=== PATIENT | male | born 1970 | race Caucasian/White ===

== ENCOUNTER 2017-04-29 18:00 | Emergency (ER) | payer OTHER ==
[~2017-04-29] VITALS: Ht 182.9 cm; Wt 125.0 kg
[~2017-04-29 18:00] MED LIST: /ATOR40TA; /AUGM875TA OR; /INSU7030 SC; /THIA10TA; ASPI81TA83 OR; BACT400T OR; CLIN150C OR; FLUC10TA OR; FOLI1TAB; GEMF600T OR; GLUC850T; INSULANT SC; JANUVIA; LISI2.5T OR; LOVAZA; METF500T4 OR; NOVOLOG100 MG/ML SC; NYSTATIN ORAL SS; No Historical Meds; POTA20TA2 OR; PRIN10TA; ZOCO40TA OR
[2017-04-29 20:21] VITALS: BP 158/94
[2017-04-29] MEDS ORDERED: CEPHALEXIN 500 MG CAP PO ONE (20:45)
[2017-04-29] MEDS ORDERED: KEFL500C17 PO (20:50)
[2017-04-29] MEDS ORDERED: ADACEL/BOOSTRIX VACCINE (DIPHTH/PERTUSS/ACELL/TETANUS)0.5ML SYR (90715) IM ONE (21:00)
== END 2017-04-29 21:26 | disposition home or self-care (01) ==
LOC: M ED 18:00
DX: L03.011 Cellulitis of right finger (principal); E11.9 Type 2 diabetes mellitus without complications; F17.200 Nicotine dependence, unspecified, uncomplicated; Z79.82 Long term (current) use of aspirin; Z79.4 Long term (current) use of insulin

== ENCOUNTER 2017-05-01 10:22 | Emergency (ER) | payer OTHER ==
[~2017-05-01] VITALS: Ht 182.9 cm; Wt 125.0 kg
[~2017-05-01 10:22] MED LIST changes: +KEFL500C17 PO
[2017-05-01 10:23] VITALS: BP 162/82
[2017-05-01] MEDS ORDERED: KEFL500C17 PO (10:37)
== END 2017-05-01 11:38 | disposition home or self-care (01) ==
LOC: M ED 10:22
DX: L02.511 Cutaneous abscess of right hand (principal); L03.011 Cellulitis of right finger; Z79.82 Long term (current) use of aspirin; Z79.4 Long term (current) use of insulin

== ENCOUNTER 2022-01-11 20:54 | Emergency (ER) | payer OTHER ==
[~2022-01-11] VITALS: Ht 182.9 cm; Wt 116.8 kg
[~2022-01-11 20:54] MED LIST changes: -/ATOR40TA; -/INSU7030 SC; +LIPI1TAB2; +NOVO1INJ4 SC
[2022-01-11 20:55] VITALS: BP 177/105
[2022-01-11] MEDS ORDERED: TRES100I SC (21:26)
[2022-01-11] MEDS ORDERED: VALS1TAB66 PO (21:26)
== END 2022-01-12 00:22 | disposition left against medical advice (07) ==
LOC: M ED 20:54
DX: Z53.21 Procedure and treatment not carried out due to patient leaving prior to being seen by health care provider (principal)

== ENCOUNTER 2025-06-10 19:17 | Inpatient (IN) | payer OTHER ==
[~2025-06-10] VITALS: Ht 182.9 cm; Wt 105.7 kg
[~2025-06-10 19:17] MED LIST changes: +TRES100I SC; +VALS1TAB66 PO
[2025-06-10] MEDS ORDERED: VALS1TAB67 PO (19:31)
[2025-06-10] MEDS ORDERED: TRES1INJ SC (19:31)
[2025-06-10] MEDS ORDERED: ICOS1CAP PO (19:31)
[2025-06-10] MEDS ORDERED: ROSU40TA81 (19:31)
[2025-06-10] MEDS: NS (Normal Saline) 0.9% 1,000 ML IV ONE (20:19)
[2025-06-10 20:27] LABS: BASO # 0.1 10^3/uL (0.0-0.2); BASO % 0.4 % (0.0-1.0); EOS # 0.1 10^3/uL (0.0-0.5); EOS % 0.5 % (0.0-3.0); LYMPH # 1.3 10^3/uL (1.5-5.0); LYMPH % 7.5 % (24.0-44.0); MONO # 1.2 10^3/uL (0.0-0.8); MONO % 7.2 % (2.0-8.0); NEUTROPHILS # 13.9 10^3/uL (1.5-8.5); NEUTROPHILS % 83.5 % (36.0-66.0); PLATELET COUNT, AUTOMATED 360 10^3/uL (150-450)
[2025-06-10 21:00] LABS: ALT/SGPT 84 U/L (7.0-40); AST/SGOT 64 U/L (<34); CALCIUM LEVEL 8.8 MG/DL (8.5-10.1); CARBON DIOXIDE LEVEL 25 MMOL/L (20-31); CHLORIDE LEVEL 93 MMOL/L (98-107); CREATININE FOR GFR 0.68 MG/DL (0.70-1.30); GLOMERULAR FILTRATION RATE > 90.0 (>56); POTASSIUM SERUM 4.2 MMOL/L (3.5-5.1); SODIUM LEVEL 130 MMOL/L (136-145)
[2025-06-10] MEDS ORDERED: ISOVUE-370 76% 100 ML VIAL As Ordered ONE (21:06)
[2025-06-10 21:17] LABS: ESTIMATED AVERAGE GLUCOSE 298.0 MG/DL (60-110)
[2025-06-10 21:46] LABS: C REACTIVE PROTEIN QUANTITATIV 19.01 MG/DL (<1.0)
[2025-06-10] MEDS: MEROPENEM 1 GM in IV 1 EA IV ONE (22:22)
[2025-06-10] MEDS ORDERED: B COCAP4 PO (22:36)
[2025-06-10] MEDS ORDERED: ECOT81TA5 PO (22:36)
[2025-06-10] MEDS ORDERED: HOME MED LIST COMPLETE! XX SCH (22:40)
[2025-06-10] MEDS ORDERED: CLINDAMYCIN 900 MG/50 ML PREMIX BAG ONE (23:05)
[2025-06-10] MEDS ORDERED: CLINDAMYCIN 900 MG/50 ML PREMIX BAG As Ordered ONE (23:05)
[2025-06-10] MEDS ORDERED: ROCURONIUM BROMIDE 50MG/5ML VIAL As Ordered ONE (23:24)
[2025-06-10] MEDS ORDERED: SUGAMMADEX SODIUM 200 MG/2 ML VIAL As Ordered ONE (23:24)
[2025-06-10] MEDS ORDERED: LIDOCAINE 2% 100 MG/5 ML SDV (FOR ANES.) As Ordered ONE (23:24)
[2025-06-10] MEDS ORDERED: MIDAZOLAM INJ 2 MG/2 ML VIAL As Ordered ONE (23:24)
[2025-06-10] MEDS ORDERED: ONDANSETRON 4MG/2ML VIAL As Ordered ONE (23:24)
[2025-06-10] MEDS: CLINDAMYCIN 900 MG in IV 1 EA IV SCH (23:25)
[2025-06-10] MEDS ORDERED: ACETAMINOPHEN 1000MG/100ML IV BAG As Ordered ONE (23:36)
[2025-06-10] MEDS ORDERED: dexmedeTOMIDine (4 MCG/ML) 200 MCG/50 ML BTL As Ordered ONE (23:39)
[2025-06-11] VITALS (14 sets, daily range): BP systolic 93–124; BP diastolic 50–67; TEMP 97–98.1; O2SAT 91–97
[2025-06-11] MEDS ORDERED: DEXTROSE 50% 50 ML SYRINGE IV PRN (00:10)
[2025-06-11] MEDS ORDERED: MAALOX 30 ML SUSP *UDC PO PRN (00:10)
[2025-06-11] MEDS ORDERED: MORPHINE 4 MG/ML 1 ML VIAL IV PRN ×2 (00:10→08:00)
[2025-06-11] MEDS ORDERED: MOM 30 ML SUSPENSION UDC PO PRN (00:10)
[2025-06-11] MEDS ORDERED: GLUCOSE 4 GM CHEW PO PRN (00:10)
[2025-06-11] MEDS ORDERED: GLUCAGON INJ 1 MG VIAL SC PRN (00:10)
[2025-06-11] MEDS ORDERED: LR 1,000 ML IV SCH (00:15)
[2025-06-11] MEDS ORDERED: HYDROMORPHONE HCL 0.5 MG/0.5 ML SYRINGE IV PRN (00:15)
[2025-06-11] MEDS ORDERED: PERCOCET 5MG/325MG TAB PO PRN (00:15)
[2025-06-11] MEDS ORDERED: ONDANSETRON 4MG/2ML VIAL IV PRN ×2 (00:15→00:30)
[2025-06-11] MEDS ORDERED: INSULIN LISPRO (NovoLOG) PER UNIT SC PRN (00:25)
[2025-06-11] MEDS: LR 1,000 ML IV SCH (01:13)
[2025-06-11] MEDS: MEROPENEM 1 GM in IV 1 EA IV SCH (05:43)
[2025-06-11 05:51] LABS: PLATELET COUNT, AUTOMATED 273 10^3/uL (150-450)
[2025-06-11 06:19] LABS: ALT/SGPT 59 U/L (7.0-40); AST/SGOT 41 U/L (<34); CALCIUM LEVEL 8.2 MG/DL (8.5-10.1); CARBON DIOXIDE LEVEL 29 MMOL/L (20-31); CHLORIDE LEVEL 98 MMOL/L (98-107); CREATININE FOR GFR 0.61 MG/DL (0.70-1.30); GLOMERULAR FILTRATION RATE > 90.0 (>56); POTASSIUM SERUM 4.1 MMOL/L (3.5-5.1); SODIUM LEVEL 135 MMOL/L (136-145)
[2025-06-11] MEDS: PANTOPRAZOLE 40MG VIAL IV SCH (08:21)
[2025-06-11] MEDS: DOCUSATE SODIUM 100 MG CAPSULE PO SCH (08:21)
[2025-06-11] MEDS: INSULIN LISPRO (NovoLOG) PER UNIT SC SCH ×3 (08:21→21:07)
[2025-06-11] MEDS ORDERED: ASPIRIN 81 MG ENTERIC TABLET PO SCH (09:00)
[2025-06-11] MEDS: TRIAMCINOLONE ACET 0.1% OINTMENT 15GM TOP SCH (21:06)
[2025-06-11] MEDS: LanTUS (INSULIN GLARGINE INJ) 1 UNITS/0.01 ML SC SCH (21:06)
[2025-06-11] MEDS: PIPERACILLIN/TAZOBACTAM SOD 4.5 GM in DEXTROSE 5% (D5W) ADV/MINI-BAG 50 ML IV SCH (21:06)
[2025-06-11] MEDS: CLOTRIMAZOLE 1% TOPICAL CREAM 30 GM TOP SCH (21:07)
[2025-06-12 00:29] VITALS: BP 129/70; TEMP 98.2; O2SAT 97
[2025-06-12 03:43] VITALS: BP 137/74; TEMP 98; O2SAT 97
[2025-06-12 05:37] LABS: BASO # 0.1 10^3/uL (0.0-0.2); BASO % 0.7 % (0.0-1.0); EOS # 0.3 10^3/uL (0.0-0.5); EOS % 3.2 % (0.0-3.0); LYMPH # 1.5 10^3/uL (1.5-5.0); LYMPH % 14.7 % (24.0-44.0); MONO # 0.7 10^3/uL (0.0-0.8); MONO % 6.7 % (2.0-8.0); NEUTROPHILS # 7.3 10^3/uL (1.5-8.5); NEUTROPHILS % 73.8 % (36.0-66.0); PLATELET COUNT, AUTOMATED 286 10^3/uL (150-450)
[2025-06-12 06:02] LABS: CALCIUM LEVEL 7.5 MG/DL (8.5-10.1); CARBON DIOXIDE LEVEL 30 MMOL/L (20-31); CHLORIDE LEVEL 101 MMOL/L (98-107); CREATININE FOR GFR 0.55 MG/DL (0.70-1.30); GLOMERULAR FILTRATION RATE > 90.0 (>56); MAGNESIUM LEVEL 1.7 MG/DL (1.8-2.4); POTASSIUM SERUM 3.8 MMOL/L (3.5-5.1); SODIUM LEVEL 136 MMOL/L (136-145)
[2025-06-12 08:00] VITALS: BP 134/76; TEMP 97.7; O2SAT 98
[2025-06-12] MEDS: MAG SULF 1GM/100ML (MAG RUN) 1 GM in IV 1 EA IV SCH (08:27)
[2025-06-12] MEDS: ACETAMINOPHEN 325 MG TAB PO PRN (08:47)
[2025-06-12 12:00] VITALS: BP 122/68; TEMP 97.8; O2SAT 95
[2025-06-12] MEDS: ENOXAPARIN 40 MG/0.4 ML SYRINGE (J1650 PER 10MG) SC SCH (12:30)
[2025-06-12 16:00] VITALS: BP 116/55; TEMP 98.6; O2SAT 98
[2025-06-12 19:30] VITALS: BP 118/73; TEMP 98.2; O2SAT 96
[2025-06-12] MEDS: LanTUS (INSULIN GLARGINE INJ) 1 UNITS/0.01 ML SC SCH (21:15)
[2025-06-13] VITALS (8 sets, daily range): BP systolic 130–160; BP diastolic 62–80; TEMP 97.5–97.8; O2SAT 80–98
[2025-06-13 05:56] LABS: BASO # 0.1 10^3/uL (0.0-0.2); BASO % 1.0 % (0.0-1.0); EOS # 0.3 10^3/uL (0.0-0.5); EOS % 4.1 % (0.0-3.0); LYMPH # 1.5 10^3/uL (1.5-5.0); LYMPH % 20.9 % (24.0-44.0); MONO # 0.5 10^3/uL (0.0-0.8); MONO % 7.4 % (2.0-8.0); NEUTROPHILS # 4.8 10^3/uL (1.5-8.5); NEUTROPHILS % 65.1 % (36.0-66.0); PLATELET COUNT, AUTOMATED 299 10^3/uL (150-450)
[2025-06-13 06:18] LABS: CALCIUM LEVEL 7.9 MG/DL (8.5-10.1); CARBON DIOXIDE LEVEL 29 MMOL/L (20-31); CHLORIDE LEVEL 103 MMOL/L (98-107); CREATININE FOR GFR 0.61 MG/DL (0.70-1.30); GLOMERULAR FILTRATION RATE > 90.0 (>56); MAGNESIUM LEVEL 1.9 MG/DL (1.8-2.4); POTASSIUM SERUM 4.0 MMOL/L (3.5-5.1); SODIUM LEVEL 139 MMOL/L (136-145)
[2025-06-13 14:26] LABS: C REACTIVE PROTEIN QUANTITATIV 5.87 MG/DL (<1.0)
[2025-06-13] MEDS: INSULIN LISPRO (NovoLOG) PER UNIT SC SCH (14:29)
[2025-06-13] MEDS: LanTUS (INSULIN GLARGINE INJ) 1 UNITS/0.01 ML SC SCH (20:37)
[2025-06-13] MEDS: ceFAZolin SODIUM 2 GM in DEXTROSE 5% (D5W) ADV/MINI-BAG 50 ML IV SCH (20:37)
[2025-06-14 00:19] VITALS: BP 140/65; TEMP 97.3; O2SAT 100
[2025-06-14 03:53] VITALS: BP 156/79; TEMP 97.1; O2SAT 98
[2025-06-14 06:26] LABS: CALCIUM LEVEL 7.6 MG/DL (8.5-10.1); CARBON DIOXIDE LEVEL 30 MMOL/L (20-31); CHLORIDE LEVEL 102 MMOL/L (98-107); CREATININE FOR GFR 0.50 MG/DL (0.70-1.30); GLOMERULAR FILTRATION RATE > 90.0 (>56); MAGNESIUM LEVEL 1.9 MG/DL (1.8-2.4); POTASSIUM SERUM 4.0 MMOL/L (3.5-5.1); SODIUM LEVEL 138 MMOL/L (136-145)
[2025-06-14 07:45] VITALS: BP 146/79; TEMP 97.4; O2SAT 92
[2025-06-14] MEDS: VALSARTAN 80MG TAB PO SCH (09:50)
[2025-06-14 11:52] VITALS: BP 137/79; TEMP 97.2; O2SAT 97
[2025-06-14 15:44] VITALS: BP 151/78; TEMP 97.9; O2SAT 97
[2025-06-14 19:49] VITALS: BP 162/80; TEMP 97.9; O2SAT 96
[2025-06-15] VITALS (8 sets, daily range): BP systolic 137–166; BP diastolic 67–82; TEMP 96.7–98.4; O2SAT 95–98
[2025-06-15 06:31] LABS: CALCIUM LEVEL 7.9 MG/DL (8.5-10.1); CARBON DIOXIDE LEVEL 30 MMOL/L (20-31); CHLORIDE LEVEL 101 MMOL/L (98-107); CREATININE FOR GFR 0.53 MG/DL (0.70-1.30); GLOMERULAR FILTRATION RATE > 90.0 (>56); MAGNESIUM LEVEL 1.8 MG/DL (1.8-2.4); POTASSIUM SERUM 4.2 MMOL/L (3.5-5.1); SODIUM LEVEL 138 MMOL/L (136-145)
[2025-06-15] MEDS: INSULIN LISPRO (NovoLOG) PER UNIT SC SCH (17:51)
[2025-06-16 04:11] VITALS: BP 161/81; TEMP 97.8; O2SAT 97
[2025-06-16 07:16] LABS: CALCIUM LEVEL 8.0 MG/DL (8.5-10.1); CARBON DIOXIDE LEVEL 29 MMOL/L (20-31); CHLORIDE LEVEL 100 MMOL/L (98-107); CREATININE FOR GFR 0.51 MG/DL (0.70-1.30); GLOMERULAR FILTRATION RATE > 90.0 (>56); MAGNESIUM LEVEL 1.8 MG/DL (1.8-2.4); POTASSIUM SERUM 4.4 MMOL/L (3.5-5.1); SODIUM LEVEL 136 MMOL/L (136-145)
[2025-06-16 07:17] VITALS: BP 139/82; TEMP 97.5; O2SAT 95
[2025-06-16 11:53] VITALS: BP 159/90; TEMP 97.9; O2SAT 96
[2025-06-16 12:00] VITALS: BP 144/80; TEMP 98.2; O2SAT 97
[2025-06-16] MEDS: INSULIN LISPRO (NovoLOG) PER UNIT SC SCH (12:31)
[2025-06-16 19:57] VITALS: BP 148/77; TEMP 97.7; O2SAT 98
[2025-06-17 00:42] VITALS: BP 153/72; TEMP 97.7; O2SAT 92
[2025-06-17 05:14] VITALS: BP 172/87; TEMP 97.1; O2SAT 95
[2025-06-17 05:53] LABS: CALCIUM LEVEL 8.6 MG/DL (8.5-10.1); CARBON DIOXIDE LEVEL 30 MMOL/L (20-31); CHLORIDE LEVEL 102 MMOL/L (98-107); CREATININE FOR GFR 0.56 MG/DL (0.70-1.30); GLOMERULAR FILTRATION RATE > 90.0 (>56); MAGNESIUM LEVEL 1.8 MG/DL (1.8-2.4); POTASSIUM SERUM 4.7 MMOL/L (3.5-5.1); SODIUM LEVEL 140 MMOL/L (136-145)
[2025-06-17 07:36] VITALS: BP 167/87; TEMP 97.8; O2SAT 95
[2025-06-17] MEDS: INSULIN LISPRO (NovoLOG) PER UNIT SC SCH ×2 (09:33→17:39)
[2025-06-17 12:03] VITALS: BP 138/79; TEMP 97.3; O2SAT 96
[2025-06-17 16:44] VITALS: BP 154/86; TEMP 97.8; O2SAT 95
[2025-06-17 19:45] VITALS: BP 150/83; TEMP 97.7; O2SAT 95
[2025-06-17] MEDS: LanTUS (INSULIN GLARGINE INJ) 1 UNITS/0.01 ML SC SCH (20:19)
[2025-06-18 03:37] VITALS: BP 141/70; TEMP 97.9; O2SAT 97
[2025-06-18 05:59] LABS: CALCIUM LEVEL 8.2 MG/DL (8.5-10.1); CARBON DIOXIDE LEVEL 27 MMOL/L (20-31); CHLORIDE LEVEL 103 MMOL/L (98-107); CREATININE FOR GFR 0.51 MG/DL (0.70-1.30); GLOMERULAR FILTRATION RATE > 90.0 (>56); MAGNESIUM LEVEL 1.8 MG/DL (1.8-2.4); POTASSIUM SERUM 4.4 MMOL/L (3.5-5.1); SODIUM LEVEL 139 MMOL/L (136-145)
[2025-06-18 07:47] VITALS: BP 140/77; TEMP 97.6; O2SAT 97
[2025-06-18 08:08] LABS: PLATELET COUNT, AUTOMATED 307 10^3/uL (150-450)
[2025-06-18 16:00] VITALS: BP 160/82; TEMP 97.9; O2SAT 93
[2025-06-18 19:46] VITALS: BP 161/85; TEMP 97.8; O2SAT 96
[2025-06-19 03:48] VITALS: BP 159/70; TEMP 99; O2SAT 96
[2025-06-19 04:59] LABS: PLATELET COUNT, AUTOMATED 318 10^3/uL (150-450)
[2025-06-19 05:21] LABS: CALCIUM LEVEL 8.8 MG/DL (8.5-10.1); CARBON DIOXIDE LEVEL 28 MMOL/L (20-31); CHLORIDE LEVEL 104 MMOL/L (98-107); CREATININE FOR GFR 0.55 MG/DL (0.70-1.30); GLOMERULAR FILTRATION RATE > 90.0 (>56); POTASSIUM SERUM 4.3 MMOL/L (3.5-5.1); SODIUM LEVEL 140 MMOL/L (136-145)
[2025-06-19 08:40] VITALS: BP 135/74; TEMP 97.6; O2SAT 98
[2025-06-19 12:00] VITALS: BP 137/74; TEMP 98.3; O2SAT 96
[2025-06-19 20:35] VITALS: BP 134/67; TEMP 97.7; O2SAT 96
[2025-06-19] MEDS: INSULIN LISPRO (NovoLOG) PER UNIT SC SCH (21:13)
[2025-06-19] MEDS: LanTUS (INSULIN GLARGINE INJ) 1 UNITS/0.01 ML SC SCH (21:14)
[2025-06-20 04:16] VITALS: BP 139/83; TEMP 98.9; O2SAT 97
[2025-06-20 06:31] LABS: PLATELET COUNT, AUTOMATED 286 10^3/uL (150-450)
[2025-06-20 06:57] LABS: CALCIUM LEVEL 8.6 MG/DL (8.5-10.1); CARBON DIOXIDE LEVEL 26 MMOL/L (20-31); CHLORIDE LEVEL 104 MMOL/L (98-107); CREATININE FOR GFR 0.52 MG/DL (0.70-1.30); GLOMERULAR FILTRATION RATE > 90.0 (>56); POTASSIUM SERUM 4.4 MMOL/L (3.5-5.1); SODIUM LEVEL 139 MMOL/L (136-145)
[2025-06-20] MEDS: INSULIN LISPRO (NovoLOG) PER UNIT SC SCH (08:00)
[2025-06-20 11:57] VITALS: BP 139/65; TEMP 98.2; O2SAT 97
[2025-06-20 20:41] VITALS: BP 137/70; TEMP 97.8; O2SAT 91
[2025-06-21] VITALS: BP 157/86; TEMP 98.6; O2SAT 96
[2025-06-21 04:00] VITALS: BP 161/83; TEMP 99; O2SAT 99
[2025-06-21 06:29] LABS: PLATELET COUNT, AUTOMATED 276 10^3/uL (150-450)
[2025-06-21 06:53] LABS: CALCIUM LEVEL 8.2 MG/DL (8.5-10.1); CARBON DIOXIDE LEVEL 28 MMOL/L (20-31); CHLORIDE LEVEL 103 MMOL/L (98-107); CREATININE FOR GFR 0.51 MG/DL (0.70-1.30); GLOMERULAR FILTRATION RATE > 90.0 (>56); POTASSIUM SERUM 4.4 MMOL/L (3.5-5.1); SODIUM LEVEL 139 MMOL/L (136-145)
[2025-06-21 08:33] VITALS: BP 143/75; TEMP 98.7; O2SAT 97
[2025-06-21 11:46] VITALS: BP 124/66; TEMP 98.5; O2SAT 95
[2025-06-21] MEDS: PANTOPRAZOLE 40MG TAB PO SCH (13:32)
[2025-06-21] MEDS: INSULIN LISPRO (NovoLOG) PER UNIT SC SCH (17:50)
[2025-06-21 20:00] VITALS: BP 150/80; TEMP 98.6; O2SAT 94
[2025-06-21] MEDS: LanTUS (INSULIN GLARGINE INJ) 1 UNITS/0.01 ML SC SCH (20:18)
[2025-06-22 04:16] VITALS: BP 149/85; TEMP 99.1; O2SAT 97
[2025-06-22 06:03] LABS: PLATELET COUNT, AUTOMATED 273 10^3/uL (150-450)
[2025-06-22 06:38] LABS: CALCIUM LEVEL 8.3 MG/DL (8.5-10.1); CARBON DIOXIDE LEVEL 28 MMOL/L (20-31); CHLORIDE LEVEL 104 MMOL/L (98-107); CREATININE FOR GFR 0.59 MG/DL (0.70-1.30); GLOMERULAR FILTRATION RATE > 90.0 (>56); POTASSIUM SERUM 4.4 MMOL/L (3.5-5.1); SODIUM LEVEL 140 MMOL/L (136-145)
[2025-06-22 11:48] VITALS: BP 133/80; TEMP 98; O2SAT 98
[2025-06-22 19:44] VITALS: BP 122/76; TEMP 97.4; O2SAT 95
[2025-06-23 03:20] VITALS: BP 125/64; TEMP 98.3; O2SAT 94
[2025-06-23 06:06] LABS: PLATELET COUNT, AUTOMATED 263 10^3/uL (150-450)
[2025-06-23 06:30] LABS: CALCIUM LEVEL 8.8 MG/DL (8.5-10.1); CARBON DIOXIDE LEVEL 27 MMOL/L (20-31); CHLORIDE LEVEL 102 MMOL/L (98-107); CREATININE FOR GFR 0.53 MG/DL (0.70-1.30); GLOMERULAR FILTRATION RATE > 90.0 (>56); POTASSIUM SERUM 4.3 MMOL/L (3.5-5.1); SODIUM LEVEL 139 MMOL/L (136-145)
[2025-06-23 08:55] VITALS: BP 143/92; TEMP 98.2; O2SAT 96
[2025-06-23 12:14] VITALS: BP 138/70; TEMP 98.5; O2SAT 96
[2025-06-23 21:06] VITALS: BP 145/78; TEMP 97.4; O2SAT 97
[2025-06-24 04:58] VITALS: BP 138/79; TEMP 97.2; O2SAT 97
[2025-06-24 07:04] LABS: PLATELET COUNT, AUTOMATED 262 10^3/uL (150-450)
[2025-06-24 07:29] LABS: CALCIUM LEVEL 8.5 MG/DL (8.5-10.1); CARBON DIOXIDE LEVEL 27 MMOL/L (20-31); CHLORIDE LEVEL 104 MMOL/L (98-107); CREATININE FOR GFR 0.58 MG/DL (0.70-1.30); GLOMERULAR FILTRATION RATE > 90.0 (>56); POTASSIUM SERUM 4.4 MMOL/L (3.5-5.1); SODIUM LEVEL 140 MMOL/L (136-145)
[2025-06-24 08:49] VITALS: BP 127/75
[2025-06-24 12:00] VITALS: BP 139/84; TEMP 98.4; O2SAT 94
[2025-06-24 20:00] VITALS: BP 125/74; TEMP 98.7; O2SAT 96
[2025-06-25 04:50] VITALS: BP 138/75; TEMP 98.9; O2SAT 96
[2025-06-25 07:04] LABS: PLATELET COUNT, AUTOMATED 272 10^3/uL (150-450)
[2025-06-25 07:20] LABS: CALCIUM LEVEL 8.8 MG/DL (8.5-10.1); CARBON DIOXIDE LEVEL 28 MMOL/L (20-31); CHLORIDE LEVEL 101 MMOL/L (98-107); CREATININE FOR GFR 0.51 MG/DL (0.70-1.30); GLOMERULAR FILTRATION RATE > 90.0 (>56); POTASSIUM SERUM 4.5 MMOL/L (3.5-5.1); SODIUM LEVEL 137 MMOL/L (136-145)
[2025-06-25 12:24] VITALS: BP 109/69; TEMP 98.7; O2SAT 95
[2025-06-25 16:17] LABS: C REACTIVE PROTEIN QUANTITATIV < 0.50 MG/DL (<1.0)
[2025-06-25 21:53] VITALS: BP 124/78; TEMP 98.2; O2SAT 99
[2025-06-26 04:27] VITALS: BP 154/86; TEMP 98.9; O2SAT 97
[2025-06-26 06:28] LABS: BASO # 0.1 10^3/uL (0.0-0.2); BASO % 1.6 % (0.0-1.0); EOS # 0.5 10^3/uL (0.0-0.5); EOS % 7.3 % (0.0-3.0); LYMPH # 2.2 10^3/uL (1.5-5.0); LYMPH % 35.8 % (24.0-44.0); MONO # 0.5 10^3/uL (0.0-0.8); MONO % 8.0 % (2.0-8.0); NEUTROPHILS # 2.9 10^3/uL (1.5-8.5); NEUTROPHILS % 47.0 % (36.0-66.0); PLATELET COUNT, AUTOMATED 262 10^3/uL (150-450)
[2025-06-26 06:56] LABS: ALT/SGPT 14 U/L (7.0-40); AST/SGOT 19 U/L (<34); CALCIUM LEVEL 8.7 MG/DL (8.5-10.1); CARBON DIOXIDE LEVEL 28 MMOL/L (20-31); CHLORIDE LEVEL 103 MMOL/L (98-107); CREATININE FOR GFR 0.61 MG/DL (0.70-1.30); GLOMERULAR FILTRATION RATE > 90.0 (>56); MAGNESIUM LEVEL 1.8 MG/DL (1.8-2.4); POTASSIUM SERUM 4.6 MMOL/L (3.5-5.1); SODIUM LEVEL 140 MMOL/L (136-145)
[2025-06-26 12:00] VITALS: BP 129/83; TEMP 98.4; O2SAT 96
[2025-06-26 20:50] VITALS: BP 134/79; TEMP 98.9; O2SAT 96
[2025-06-27 05:43] VITALS: BP 139/83; TEMP 98.9; O2SAT 97
[2025-06-27 09:46] VITALS: BP 134/81
[2025-06-27 12:00] VITALS: BP 136/74; TEMP 98.6; O2SAT 100
[2025-06-27] MEDS ORDERED: TRES1INJ SC (16:28)
[2025-06-27] MEDS ORDERED: HUMA50IN4 SC (16:28)
[2025-06-27] MEDS ORDERED: GLOB31MI SC (16:31)
== END 2025-06-27 17:57 | disposition home health service (06) | DRG 351 ==
LOC: M ED 19:17 → M ED INP 06-11 00:08 → M PCU 06-11 00:59 → M MSPAV 06-19 08:38
PROVIDERS: ADMIT Student in an Organized Health Care Education/Training Program; ATTEND Student in an Organized Health Care Education/Training Program
PROC: 0JBB0ZZ Excision of Perineum Subcutaneous Tissue and Fascia, Open Approach (ICD-10-PCS; principal; 2025-06-11)
DX: M79.89 Other specified soft tissue disorders (principal); M72.6 Necrotizing fasciitis; I96 Gangrene, not elsewhere classified; R78.81 Bacteremia; I42.0 Dilated cardiomyopathy; E11.65 Type 2 diabetes mellitus with hyperglycemia; N28.1 Cyst of kidney, acquired; L03.315 Cellulitis of perineum; L02.31 Cutaneous abscess of buttock; I10 Essential (primary) hypertension; B95.61 Methicillin susceptible Staphylococcus aureus infection as the cause of diseases classified elsewhere; E66.811 Obesity, class 1; E78.5 Hyperlipidemia, unspecified; I34.0 Nonrheumatic mitral (valve) insufficiency; K21.9 Gastro-esophageal reflux disease without esophagitis; Z68.31 Body mass index [BMI] 31.0-31.9, adult; F17.200 Nicotine dependence, unspecified, uncomplicated; Z79.899 Other long term (current) drug therapy; Z79.82 Long term (current) use of aspirin; Z79.4 Long term (current) use of insulin